=== PATIENT | female | born 1990 | race Caucasian/White ===

== ENCOUNTER 2021-10-31 11:47 | Emergency (ER) | payer OTHER ==
[~2021-10-31] VITALS: Ht 152.4 cm; Wt 59.0 kg
[~2021-10-31 11:47] MED LIST: APAP500 PO; DERMOPLAST SPRA56 ML; IBUPROFEN 800800 M1 PO; PRENATAL PO; TUCKS MEDICATE1 EAC1; ZANTAC 150MG T150 M1 PO
[2021-10-31 11:48] VITALS: BP 106/63
[2021-10-31] MEDS ORDERED: BACTRIM DS TAB1 EACH PO (13:04)
== END 2021-10-31 13:06 | disposition home or self-care (01) ==
LOC: ER 11:47
DX: S61.401A Unspecified open wound of right hand, initial encounter (principal); M79.641 Pain in right hand; Z79.891 Long term (current) use of opiate analgesic; Z79.899 Other long term (current) drug therapy; Z88.0 Allergy status to penicillin; X58.XXXA Exposure to other specified factors, initial encounter; Y93.89 Activity, other specified; Y92.89 Other specified places as the place of occurrence of the external cause; Y99.8 Other external cause status